=== PATIENT | female | born 1980 | race Caucasian/White ===

== ENCOUNTER 2017-02-13 14:17 | Emergency (ER) | payer OTHER ==
--- NOTE | 2017-02-13 15:13 | DIAGNOSTIC IMAGING REPORT ---
PROCEDURE: XR CHEST 2 VIEW INDICATION: CHEST PAIN TECHNIQUE: PA and lateral view. COMPARISON: None. FINDINGS: Lungs are clear. Cardiovascular structures are normal. Bony thorax is unremarkable. IMPRESSION: 1. Negative chest.
--- NOTE | 2017-02-13 15:33 | ED NURSING NOTES ---
Clinical Report - Nurses [facility] [place] [address] 02/13/2017 14:21 Patient: MARIA TATE TRIAGE Triage time 14:27. Acuity: LEVEL 3. Chief Complaint: PAIN ON INSPIRATION and CHEST PAIN. --14:31 Nazia Zamora R.N. 14:27 02/13/17. BP: 124/66. HR: 95. RR: 18. O2 saturation: 100%. Temp: 98.2 F. Pain level now 02/13. --14:31 Nazia Zamora R.N. Weight: 77.1 kg stated. Height/Length: 62 inches Per Patient. BMI: 31.1. --14:30 Nazia Zamora R.N. Medications None. --14:28 Nazia Zamora R.N. Allergies None. --14:28 Nazia Zamora R.N. History Arrived by private vehicle. Primary physician (Betsey). This started yesterday. ( Pin is respiratory in nature worse with a deep breath in mid chest). SOCIAL HX: Heavy tobacco smoker (cigarette)- less than 1 pack per day. Regular alcohol use. No drug use. --14:31 Nazia Zamora R.N. PROBLEMS: None. --14:29 Nazia Zamora R.N. ADDITIONAL SURGERIES: . Endometrial ablasion. --14:29 Nazia Zamora R.N. PHYSICAL ASSESSMENT Ambulatory to room. Patient gowned. GENERAL / NEURO / PSYCH: Alert. Oriented X 4. Appears in no acute distress. RESPIRATORY: Respirations not labored. --14:31 Nazia Zamora R.N. NURSING PROGRESS NOTES Patient identifiers checked. Call light placed in reach. Patient ready for evaluation- ED physician notified. --14:31 Nazia Zamora R.N. Patient ID band checked for patient name and birthdate: patient confirmed. Instructions provided to collect clean catch urine and patient verbalized understanding. Clean catch urine collected with return of yellow-colored clear urine; sample sent to lab for urinalysis. Specimen labeled in the presence of the patient. --14:49 Crissy Alfredo Cardiac rhythm: normal sinus rhythm. The patient is resting quietly. Overall patient status is improved- she states feels better. --15:02 Nazia Zamora R.N. 15:01 02/13/17. BP: 124/66. HR: 88. RR: 16. O2 saturation: 100%. Pain level now 12/16. --15:02 Nazia Zamora R.N. Patient ID band checked for patient name and birthdate: patient confirmed. Blood samples drawn from the right antecubital space with 22g butterfly by tech per protocol ; labeled in presence of the patient and sent to lab: kwaku muñoz. --15:06 Crissy Alfredo. DISPOSITION / DISCHARGE Departure time: 15:44. Condition at departure: unchanged. No learning barriers present. Discharge instructions provided and reviewed with the patient. Patient verbalized understanding. Written instructions provided in Omani. The patient was discharged home and accompanied by spouse. She left the Emergency Department ambulatory and via private vehicle. Spouse driving. --15:44 Nazia Zamora R.N. 15:43 02/13/17. BP: 116/71. HR: 84. RR: 18. O2 saturation: 100%. Pain level now 02/13. --15:44 Nazia Zamora R.N. Locked/Released at 02/13/2017 15:48 by Nazia Zamora R.N.
--- NOTE | 2017-02-13 15:33 | ED CLINICAL REPORT ---
Clinical Report - Physicians/Mid Levels [facility] [address] [place] [address] 02/13/2017 14:21 Patient: MARIA TATE Time Seen: 14:52 Feb 13 2017. Arrived- By private vehicle. Historian- patient. HISTORY OF PRESENT ILLNESS Chief Complaint: CHEST PAIN. It is described as pressure and it is described as located in the central chest area. This started yesterday and is still present. No nausea or vomiting. (pain onset while making dinner last night, central, sharp in nature readings of the right aspect. Pain worsens with movement. Reports similar history of pain one other time, when she was treated for sinusitis, pain resolved within a few days. Reports 17 years of smoking. Denies any injury. Denies history of PE or DVT. Denies any recent illness, cough, hemoptysis fevers or chills. Denies urinary or congestion. Denies headache.). PAST HISTORY MOM [place] at 51. Problems: None. Additional Surgeries: . Endometrial ablasion. Medications: None. Allergies: None. ADDITIONAL NOTES The nursing notes have been reviewed. PHYSICAL EXAM Vital Signs: 02/13/2017 14:27 BP: 124/66. HR: 95. RR: 18. O2 saturation: 100%. Temp: 98.2 F. Appearance: Alert. No acute distress. ENT: Ears normal. Nose normal. Neck: Normal inspection. No carotid bruit or lymphadenopathy. CVS: Normal heart rate and rhythm. Heart sounds normal. Respiratory: No respiratory distress. Breath sounds normal. No splinting, rales, rhonchi or wheezes. Abdomen: Soft. No mass. No abdominal tenderness. The bowel sounds are not abnormal. Skin: Skin warm. Normal skin color. Neuro: Oriented X 3. No motor deficit. LABS, X-RAYS, AND EKG EKG: EKG time: (1436). No acute process. No acute ischemia. Rate: 87. Normal P waves. Normal NICOLAS. Normal QRS complex. Normal axis. Normal ST and T waves and QT. The study has been interpreted contemporaneously. The study has been independently viewed by me. The EKG appears to be a good tracing. Chest X-ray: (IMPRESSION: 1. Negative chest. Electronically Final signed by:Cesar Tomlinson MD 02/13/2017 3:13:17 PM). Laboratory Tests: Urine: (MIKEY: 02/13/2017 14:43) ( MsgRcvd 02/13/2017 14:54) Final results Test Result Flag Units (Reference) URINE NEGATIVE CBC w Diff: (MIKEY: 02/13/2017 15:00) ( MsgRcvd 02/13/2017 15:11) Final results Test Result Flag Units (Reference) WHITE BLOOD COUNT 11.1 K/uL (4.5-11.5) RED BLOOD COUNT 4.16 M/uL (4.00-5.20) HEMOGLOBIN 12.9 gm/dL (12.0-16.0) HEMATOCRIT 37.8 % (36.0-46.0) MEAN CELL VOLUME 91 fL (80-100) MEAN CORPUSCULAR HGB 31 pg (26-34) MEAN CORPUSCULAR HGB CONC 34 g/dL (31-37) RED CELL DISTRIBUTION WIDTH 13.8 % (11.6-14.8) PLATELET COUNT 134 L K/uL (150-400) NEUTROPHIL % 76.3 H % (50-75) LYMPH % 15.4 L % (25-40) MONO % 7.5 % (3-14) EOSINOPHIL % 0.5 % (0-4) BASOPHIL % 0.3 % (0-2) CHEM 13 PANEL: (MIKEY: 02/13/2017 15:00) ( MsgRcvd 02/13/2017 15:24) Final results Test Result Flag Units (Reference) GLUCOSE 120 H mg/dL (70-110) BUN 10 mg/dL (7-18) CREATININE 0.7 mg/dL (0.6-1.3) Estimated GFR >60 mL/min Estimated GFR- >60 mL/min Note: Persistent reduction over 3 months in eGFR<60 mL/min/1.73 m2 defines CKD. Patients with eGFR values>=60 mL/min/1.73 m2 may also have CKD if evidence ofpersistent proteinuria. Additional information may be foundat www.kidney.org. SODIUM 138 mmol/L (136-145) POTASSIUM 3.6 mmol/L (3.5-5.1) CHLORIDE 104 mmol/L (98-107) CARBON DIOXIDE 25 mmol/L (21-32) CALCIUM 8.9 mg/dL (8.5-10.1) TOTAL PROTEIN 6.9 g/dL (6.4-8.2) ALBUMIN 3.8 g/dL (3.3-5.0) BILIRUBIN, TOTAL 0.4 mg/dL (0.0-1.0) ALKALINE PHOSPHATASE 55 U/L (46-116) AST (SGOT) 18 U/L (15-37) ALT (SGPT) 25 U/L (12-78) CPK 101 U/L (24-260) MAGNESIUM 1.7 L mg/dL (1.8-2.4) TROPONIN I <0.05 L ng/mL (0.00-1.5) TROPONIN REFERENCE RANGE:<0.1 NEGATIVE0.1-1.5 INDETERMINANT>1.5 POSITIVE . PROGRESS AND PROCEDURES Course of Care: Ongoing pain for 24 hours. Patient is a smoker and family history of [place]. These are her risk factors here in the ER negative workup. She is perk negative. Do not suspect PE. Patient with soft abdomen. Labs unremarkable. Urinalysis unremarkable. No signs of any acute distress. She is stable. To follow up outpatient. Strict return precautions given to patient. 02/13/2017 15:43 BP: 116/71. HR: 84. RR: 18. O2 saturation: 100%. Patient is stable. Symptoms better. Patient/family counseled. Disposition: Discharged. Condition: good. CLINICAL IMPRESSION Atypical chest pain .12 lead EKG performed. An EKG was not performed because a noncardiac etiology was evident without doing an EKG. INSTRUCTIONS No strenuous activity. Rest. Avoid stimulants (such as cigarettes, coffee, cold medicines, sinus medicines, street drugs). Do not smoke. No alcohol. OTC Medications: Acetaminophen (available over the counter): take according to label instructions. Motrin (available over the counter): take according to label instructions. Follow-up: Follow up with your doctor in three days. Understanding of the discharge instructions verbalized by patient. (Electronically signed by Tegan Funez P.A.-C 02/13/2017 16:21)
--- NOTE | 2017-02-13 15:33 | ED NURSING NOTES ---
Clinical Report - Nurses [facility] [place] [address] 02/13/2017 14:21 Patient: MARIA TATE TRIAGE Triage time 14:27. Acuity: LEVEL 3. Chief Complaint: PAIN ON INSPIRATION and CHEST PAIN. --14:31 Nazia Zamora R.N. 14:27 02/13/17. BP: 124/66. HR: 95. RR: 18. O2 saturation: 100%. Temp: 98.2 F. Pain level now 02/13. --14:31 Nazia Zamora R.N. Weight: 77.1 kg stated. Height/Length: 62 inches Per Patient. BMI: 31.1. --14:30 Nazia Zamora R.N. Medications None. --14:28 Nazia Zamora R.N. Allergies None. --14:28 Nazia Zamora R.N. History Arrived by private vehicle. Primary physician (Betsey). This started yesterday. ( Pin is respiratory in nature worse with a deep breath in mid chest). SOCIAL HX: Heavy tobacco smoker (cigarette)- less than 1 pack per day. Regular alcohol use. No drug use. --14:31 Nazia Zamora R.N. PROBLEMS: None. --14:29 Nazia Zamora R.N. ADDITIONAL SURGERIES: . Endometrial ablasion. --14:29 Nazia Zamora R.N. PHYSICAL ASSESSMENT Ambulatory to room. Patient gowned. GENERAL / NEURO / PSYCH: Alert. Oriented X 4. Appears in no acute distress. RESPIRATORY: Respirations not labored. --14:31 Nazia Zamora R.N. NURSING PROGRESS NOTES Patient identifiers checked. Call light placed in reach. Patient ready for evaluation- ED physician notified. --14:31 Nazia Zamora R.N. Patient ID band checked for patient name and birthdate: patient confirmed. Instructions provided to collect clean catch urine and patient verbalized understanding. Clean catch urine collected with return of yellow-colored clear urine; sample sent to lab for urinalysis. Specimen labeled in the presence of the patient. --14:49 Crissy Alfredo Cardiac rhythm: normal sinus rhythm. The patient is resting quietly. Overall patient status is improved- she states feels better. --15:02 Nazia Zamora R.N. 15:01 02/13/17. BP: 124/66. HR: 88. RR: 16. O2 saturation: 100%. Pain level now 12/16. --15:02 Nazia Zamora R.N. Patient ID band checked for patient name and birthdate: patient confirmed. Blood samples drawn from the right antecubital space with 22g butterfly by tech per protocol ; labeled in presence of the patient and sent to lab: kwaku muñoz. --15:06 Crissy Alfredo. DISPOSITION / DISCHARGE Departure time: 15:44. Condition at departure: unchanged. No learning barriers present. Discharge instructions provided and reviewed with the patient. Patient verbalized understanding. Written instructions provided in Mosotho. The patient was discharged home and accompanied by spouse. She left the Emergency Department ambulatory and via private vehicle. Spouse driving. --15:44 Nazia Zamora R.N. 15:43 02/13/17. BP: 116/71. HR: 84. RR: 18. O2 saturation: 100%. Pain level now 02/13. --15:44 Nazia Zamora R.N. Locked/Released at 02/13/2017 15:48 by Nazia Zamora R.N.
--- NOTE | 2017-02-13 15:33 | ED ORDER SUMMARY ---
..... 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 (15:48 02/13/2017)] [Electronically signed by Tegan Funez P.A.-C (16:21 02/13/2017)] [Electronically locked/signed by Nazia Zamora R.N. (15:48 02/13/2017)]
--- NOTE | 2017-02-13 15:33 | ED CLINICAL REPORT ---
Clinical Report - Physicians/Mid Levels [facility] [address] [place] [address] 02/13/2017 14:21 Patient: MARIA TATE Time Seen: 14:52 Feb 13 2017. Arrived- By private vehicle. Historian- patient. HISTORY OF PRESENT ILLNESS Chief Complaint: CHEST PAIN. It is described as pressure and it is described as located in the central chest area. This started yesterday and is still present. No nausea or vomiting. (pain onset while making dinner last night, central, sharp in nature readings of the right aspect. Pain worsens with movement. Reports similar history of pain one other time, when she was treated for sinusitis, pain resolved within a few days. Reports 17 years of smoking. Denies any injury. Denies history of PE or DVT. Denies any recent illness, cough, hemoptysis fevers or chills. Denies urinary or congestion. Denies headache.). PAST HISTORY MOM [place] at 51. Problems: None. Additional Surgeries: . Endometrial ablasion. Medications: None. Allergies: None. ADDITIONAL NOTES The nursing notes have been reviewed. PHYSICAL EXAM Vital Signs: 02/13/2017 14:27 BP: 124/66. HR: 95. RR: 18. O2 saturation: 100%. Temp: 98.2 F. Appearance: Alert. No acute distress. ENT: Ears normal. Nose normal. Neck: Normal inspection. No carotid bruit or lymphadenopathy. CVS: Normal heart rate and rhythm. Heart sounds normal. Respiratory: No respiratory distress. Breath sounds normal. No splinting, rales, rhonchi or wheezes. Abdomen: Soft. No mass. No abdominal tenderness. The bowel sounds are not abnormal. Skin: Skin warm. Normal skin color. Neuro: Oriented X 3. No motor deficit. LABS, X-RAYS, AND EKG EKG: EKG time: (1436). No acute process. No acute ischemia. Rate: 87. Normal P waves. Normal NICOLAS. Normal QRS complex. Normal axis. Normal ST and T waves and QT. The study has been interpreted contemporaneously. The study has been independently viewed by me. The EKG appears to be a good tracing. Chest X-ray: (IMPRESSION: 1. Negative chest. Electronically Final signed by:Cesar Tomlinson MD 02/13/2017 3:13:17 PM). Laboratory Tests: Urine: (MIKEY: 02/13/2017 14:43) ( MsgRcvd 02/13/2017 14:54) Final results Test Result Flag Units (Reference) URINE NEGATIVE CBC w Diff: (MIKEY: 02/13/2017 15:00) ( MsgRcvd 02/13/2017 15:11) Final results Test Result Flag Units (Reference) WHITE BLOOD COUNT 11.1 K/uL (4.5-11.5) RED BLOOD COUNT 4.16 M/uL (4.00-5.20) HEMOGLOBIN 12.9 gm/dL (12.0-16.0) HEMATOCRIT 37.8 % (36.0-46.0) MEAN CELL VOLUME 91 fL (80-100) MEAN CORPUSCULAR HGB 31 pg (26-34) MEAN CORPUSCULAR HGB CONC 34 g/dL (31-37) RED CELL DISTRIBUTION WIDTH 13.8 % (11.6-14.8) PLATELET COUNT 134 L K/uL (150-400) NEUTROPHIL % 76.3 H % (50-75) LYMPH % 15.4 L % (25-40) MONO % 7.5 % (3-14) EOSINOPHIL % 0.5 % (0-4) BASOPHIL % 0.3 % (0-2) CHEM 13 PANEL: (MIKEY: 02/13/2017 15:00) ( MsgRcvd 02/13/2017 15:24) Final results Test Result Flag Units (Reference) GLUCOSE 120 H mg/dL (70-110) BUN 10 mg/dL (7-18) CREATININE 0.7 mg/dL (0.6-1.3) Estimated GFR >60 mL/min Estimated GFR- >60 mL/min Note: Persistent reduction over 3 months in eGFR<60 mL/min/1.73 m2 defines CKD. Patients with eGFR values>=60 mL/min/1.73 m2 may also have CKD if evidence ofpersistent proteinuria. Additional information may be foundat www.kidney.org. SODIUM 138 mmol/L (136-145) POTASSIUM 3.6 mmol/L (3.5-5.1) CHLORIDE 104 mmol/L (98-107) CARBON DIOXIDE 25 mmol/L (21-32) CALCIUM 8.9 mg/dL (8.5-10.1) TOTAL PROTEIN 6.9 g/dL (6.4-8.2) ALBUMIN 3.8 g/dL (3.3-5.0) BILIRUBIN, TOTAL 0.4 mg/dL (0.0-1.0) ALKALINE PHOSPHATASE 55 U/L (46-116) AST (SGOT) 18 U/L (15-37) ALT (SGPT) 25 U/L (12-78) CPK 101 U/L (24-260) MAGNESIUM 1.7 L mg/dL (1.8-2.4) TROPONIN I <0.05 L ng/mL (0.00-1.5) TROPONIN REFERENCE RANGE:<0.1 NEGATIVE0.1-1.5 INDETERMINANT>1.5 POSITIVE . PROGRESS AND PROCEDURES Course of Care: Ongoing pain for 24 hours. Patient is a smoker and family history of [place]. These are her risk factors here in the ER negative workup. She is perk negative. Do not suspect PE. Patient with soft abdomen. Labs unremarkable. Urinalysis unremarkable. No signs of any acute distress. She is stable. To follow up outpatient. Strict return precautions given to patient. 02/13/2017 15:43 BP: 116/71. HR: 84. RR: 18. O2 saturation: 100%. Patient is stable. Symptoms better. Patient/family counseled. Disposition: Discharged. Condition: good. CLINICAL IMPRESSION Atypical chest pain .12 lead EKG performed. An EKG was not performed because a noncardiac etiology was evident without doing an EKG. INSTRUCTIONS No strenuous activity. Rest. Avoid stimulants (such as cigarettes, coffee, cold medicines, sinus medicines, street drugs). Do not smoke. No alcohol. OTC Medications: Acetaminophen (available over the counter): take according to label instructions. Motrin (available over the counter): take according to label instructions. Follow-up: Follow up with your doctor in three days. Understanding of the discharge instructions verbalized by patient. (Electronically signed by Tegan Funez P.A.-C 02/13/2017 16:21)
--- NOTE | 2017-02-13 15:33 | ED ORDER SUMMARY ---
..... 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 (15:48 02/13/2017)] [Electronically signed by Tegan Funez P.A.-C (16:21 02/13/2017)] [Electronically locked/signed by Nazia Zamora R.N. (15:48 02/13/2017)]
--- NOTE | 2017-02-13 16:21 | ED MED RECONCILIATION SUMMARY ---
Patient: MARIA TATE Medication Reconciliation Report [facility] VisitID: [id number] [address] [place] [address] 36y, F Registration Date/Time: 02/13/2017 Weight: 77.1 kg Height/Length: 62 in. BMI: 31.1 ALLERGIES: None The patient's Home Medications are listed below: NONE. The source(s) of the original Home Medication information: Not obtained. The following Medications were given to the patient in the Emergency Department: None. The following Medications were prescribed to the patient: Acetaminophen (available over the counter): take according to label instructions. -- Tegan Funez, P.A.-Avi Motrin (available over the counter): take according to label instructions. -- Tegan Funez P.A.-C
--- NOTE | 2017-02-13 16:21 | ED MAR SUMMARY ---
..... Medication Administration Record [facility] [address] [place] [place], [place] [id number] Patient: MARIA TATE Visit ID: [id number] 36y, F Weight: 77.1 kg Height/Length: 62 in BMI: 31.1 ALLERGIES: None
--- NOTE | 2017-02-13 16:21 | ED DISCHARGE INSTRUCTIONS ---
Patient: MARIA TATE General Instructions [facility] VisitID: [id number] [place] [address] 36y, F Registration Date/Time: 02/13/2017 Atypical chest pain .12 lead EKG performed. An EKG was not performed because a noncardiac etiology was evident without doing an EKG. INSTRUCTIONS No strenuous activity. Rest. Avoid stimulants (such as cigarettes, coffee, cold medicines, sinus medicines, street drugs). Do not smoke. No alcohol. OTC Medications: Acetaminophen (available over the counter): take according to label instructions. Motrin (available over the counter): take according to label instructions. Follow-up: Follow up with your doctor in three days. Understanding of the discharge instructions verbalized by patient. ADDITIONAL INFORMATION Chest Pain, Uncertain Cause Chest pain can happen for a number of reasons. Sometimes the cause can not be determined. If yourcondition does not seem serious, and your pain does not appear to be coming from your heart, your doctor may recommend watching it closely. Sometimes the signs of a serious problem take more time to appear. Therefore, watch for the warning signs listed below. Home care After your visit, follow these recommendations: Rest today and avoid strenuous activity. Take any prescribed medicine as directed. Follow-up care Follow up with your doctor or this facility as instructed or if you do not start to feel better within 24 hours. Call 911 Get immediate medical attention if any of the following occur: A change in the type of pain: if it feels different, becomes more severe, lasts longer, or begins to spread into your shoulder, arm, neck, jaw or back Shortness of breath or increased pain with breathing Weakness, dizziness, or fainting Rapid heart beat Get prompt medical attention Call your doctor right away if any of the following occur: Cough with dark colored sputum (phlegm) or blood Fever of 100.4F(38C) or higher, or as directed by your health care provider Swelling, pain or redness in one leg You have been given the following additional information: Chest Pain, Uncertain Cause No strenuous activity. Rest. (Electronically signed by Tegan Funez P.A.-C 02/13/2017 16:21)
--- NOTE | 2017-02-13 16:21 | ED MAR SUMMARY ---
..... Medication Administration Record [facility] [address] [place], [place] [id number] Patient: MARIA TATE Visit ID: [id number] 36y, F Weight: 77.1 kg Height/Length: 62 in BMI: 31.1 ALLERGIES: None
--- NOTE | 2017-02-13 16:21 | ED MED RECONCILIATION SUMMARY ---
Patient: MARIA TATE Medication Reconciliation Report [facility] VisitID: [id number] [address] [place] [address] 36y, F Registration Date/Time: 02/13/2017 Weight: 77.1 kg Height/Length: 62 in. BMI: 31.1 ALLERGIES: None The patient's Home Medications are listed below: NONE. The source(s) of the original Home Medication information: Not obtained. The following Medications were given to the patient in the Emergency Department: None. The following Medications were prescribed to the patient: Acetaminophen (available over the counter): take according to label instructions. -- Tegan Funez, P.A.-Avi Motrin (available over the counter): take according to label instructions. -- Tegan Funez P.A.-C
--- NOTE | 2017-02-13 16:21 | ED DISCHARGE INSTRUCTIONS ---
Patient: MARIA TATE General Instructions [facility] VisitID: [id number] [place] [address] 36y, F Registration Date/Time: 02/13/2017 Atypical chest pain .12 lead EKG performed. An EKG was not performed because a noncardiac etiology was evident without doing an EKG. INSTRUCTIONS No strenuous activity. Rest. Avoid stimulants (such as cigarettes, coffee, cold medicines, sinus medicines, street drugs). Do not smoke. No alcohol. OTC Medications: Acetaminophen (available over the counter): take according to label instructions. Motrin (available over the counter): take according to label instructions. Follow-up: Follow up with your doctor in three days. Understanding of the discharge instructions verbalized by patient. ADDITIONAL INFORMATION Chest Pain, Uncertain Cause Chest pain can happen for a number of reasons. Sometimes the cause can not be determined. If yourcondition does not seem serious, and your pain does not appear to be coming from your heart, your doctor may recommend watching it closely. Sometimes the signs of a serious problem take more time to appear. Therefore, watch for the warning signs listed below. Home care After your visit, follow these recommendations: Rest today and avoid strenuous activity. Take any prescribed medicine as directed. Follow-up care Follow up with your doctor or this facility as instructed or if you do not start to feel better within 24 hours. Call 911 Get immediate medical attention if any of the following occur: A change in the type of pain: if it feels different, becomes more severe, lasts longer, or begins to spread into your shoulder, arm, neck, jaw or back Shortness of breath or increased pain with breathing Weakness, dizziness, or fainting Rapid heart beat Get prompt medical attention Call your doctor right away if any of the following occur: Cough with dark colored sputum (phlegm) or blood Fever of 100.4F(38C) or higher, or as directed by your health care provider Swelling, pain or redness in one leg You have been given the following additional information: Chest Pain, Uncertain Cause No strenuous activity. Rest. (Electronically signed by Tegan Funez P.A.-C 02/13/2017 16:21)
== END 2017-02-13 15:43 | disposition home or self-care (01) ==
LOC: ED SRH 14:17
DX: R07.89 Other chest pain (principal); F17.210 Nicotine dependence, cigarettes, uncomplicated; Z82.49 Family history of ischemic heart disease and other diseases of the circulatory system
CPT/HCPCS: 90074; 90100; 90616; 92610; 92720; 93070; 95059